=== PATIENT | male | born 2005 | race Caucasian/White ===

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

== ENCOUNTER 2025-04-01 12:21 | Outpatient (CLI) | payer OTHER, BC, SELFPAY ==
[2025-04-02 10:08] LABS: Levetiracetam Immunoassy 33.1 mcg/mL (10.0-40.0)
== END 2025-04-01 12:22 | disposition home or self-care (01) ==
PROVIDERS: PCP Family Medicine; Visit Provider Family Medicine
DX: R56.9 Unspecified convulsions (principal)
CPT/HCPCS: 80177